=== PATIENT | female | born 1985 | race Caucasian/White ===

== ENCOUNTER 2016-12-26 12:25 | Emergency (ER) | payer MEDICAID, OTHER ==
[~2016-12-26] VITALS: Ht 154.9 cm; Wt 75.0 kg
[~2016-12-26 12:25] MED LIST: FLUT1SPR9 NASAL; KETO2%T TOP; NORE1TAB60 PO; PRIL40CA PO
[2016-12-26 12:44] VITALS: BP 126/83; PULSE 106; RESP 16; TEMP 98.3; O2SAT 100
[2016-12-26 13:41] LABS: GLUCOSE,URINE NEG (NEG); KETONE, URINE NEG (NEG); PH, URINE 5.5 (5.0-8.5)
[2016-12-26 13:42] LABS: BLOOD, URINE MOD (NEG); NITRITE,URINE POS (NEG)
[2016-12-26 13:45] LABS: URINE COLOR STRAW (YELLW/STRAW)
[2016-12-26 13:46] LABS: SQUAMOUS EPITHELIAL CELL URINE 0-5 /hpf (0-5); WBC, URINE 100-200 /hpf (0-5)
[2016-12-26 13:47] LABS: BACTERIA, URINE FEW /hpf; COMMENT (UR) CULTURE INDICATED; CULTURE IF INDICATED CULTURE INDICATED
[2016-12-26] MEDS ORDERED: PHEN0.4T PO (13:50)
[2016-12-26] MEDS ORDERED: CEPH-460 PO (13:50)
--- NOTE | 2016-12-26 13:57 | PD ---
HPI Chief Complaint: Complaint Time Seen by Provider: 13:35 Travel History International Travel<30 days: No Contact w/Intl Traveler<30days: No Traveled to known affect area: No History of Present Illness HPI 31-year-old female presents to the emergency room for evaluation of dysuria, urgency, and frequency for the past 3 days. Patient's symptoms started out simple but worsened yesterday and today. Pain is most severe at the end of her stream and causes associated abdominal cramping. She has history of UTIs and states her symptoms feel same. No vaginal discharge or concern for STDs. She denies fever or chills, nausea, vomiting, abdominal pain, back pain, and hematuria. PFSH Past Medical History Asthma: Yes Anxiety: Yes Depression: Yes Diminished Hearing: No Gastrointestinal Disorders: Yes (ULCER) GERD: Yes Influenza Vaccination: No ?: Not Menopausal: No : 3 Para: 2 Miscarriage: 1 : 0 Past Surgical History Ear Surgery: Yes (EUSTACHIAN TUBES) Tympanostomy Tube: Yes (TIMES 3) Social History Alcohol Use: No Tobacco Use: No Substance Use: No Allergies-Medications (Allergen,Severity, Reaction): Coded Allergies: Egg White (Verified Allergy, Severe, "HIVES", 12/26/16) Reported Meds & Prescriptions Reported Meds & Active Scripts Active Pyridium (Phenazopyridine HCl) 100 Mg Tab 100 Mg PO Q8HR Keflex (Cephalexin) 500 Mg Cap 500 Mg PO Q12HR 10 Days Prilosec 40 mg cap (Omeprazole) 40 Mg Cap 40 Mg PO DAILY Nizoral (Ketoconazole) 2 % Cr 1 Applic TOP BID Flonase Allergy Relief Ch (Fluticasone Propionate (Nasal)) 50 Mcg/Act Spr 2 Puff NASAL DAILY Reported Loestrin 21 08/02 (Ethinyl Estradiol/Norethindrone) Unknown Strength Pack 1 Tab PO DAILY Review of Systems Except as stated in HPI: all other systems reviewed are Neg Physical Exam Narrative GENERAL: Well-nourished, well-developed female in no acute distress. Afebrile. Ambulatory. SKIN: Focused skin assessment warm/dry. HEAD: Normocephalic. EYES: No scleral icterus. No injection or drainage. NECK: Supple, trachea midline. No JVD or lymphadenopathy. CARDIOVASCULAR: Regular rate and rhythm without murmurs, gallops, or rubs. RESPIRATORY: Breath sounds equal bilaterally. No accessory muscle use. GASTROINTESTINAL: Abdomen soft, non-tender, nondistended. BACK: Nontender without obvious deformity. No CVA tenderness. Data Data Last Documented VS Vital Signs Date Time Temp Pulse Resp B/P Pulse Ox O2 Delivery O2 Flow Rate FiO2 12/26/16 12:44 98.3 106 16 126/83 100 Orders Urinalysis - C+S If Indicated (12/26/16 13:26) Urine Culture (12/26/16 13:31) Labs Laboratory Tests Test 12/26/16 13:31 Urine Color STRAW Urine Turbidity HAZY Urine pH 5.5 Urine Specific [place] 1.010 Urine Protein TRACE mg/dL Urine Glucose (UA) NEG mg/dL Urine Ketones NEG mg/dL Urine Occult Blood MOD Urine Nitrite POS Urine Bilirubin NEG Urine Leukocyte Esterase MOD Urine RBC 10-14 /hpf Urine WBC 100-200 /hpf Urine WBC Clumps FEW Urine Squamous Epithelial 0-5 /hpf Cells Urine Bacteria FEW /hpf Microscopic Urinalysis Comment CULTURE INDICATED MDM Medical Decision Making Medical Screen Exam Complete: Yes Emergency Medical Condition: Yes Medical Record Reviewed: Yes Differential Diagnosis UTI, STD, pyelonephritis Narrative Course 31-year-old female presents to the emergency room for evaluation of dysuria, urgency, and frequency for the past 3 days. Patient is afebrile and well- appearing in the emergency room. Resting comfortably in bed. No concern for STD or vaginal discharge. Physical exam is unremarkable. UA shows evidence of urinary tract infection. Patient discharged with prescriptions for Keflex and Pyridium. Told to follow up with her primary care physician or return for worsening symptoms. She understands and agrees to plan. Diagnosis Primary Impression: Urinary tract infection Qualified Code: N30.01 - Acute cystitis with hematuria Referrals: Primary Care Physician Patient Instructions: General Instructions, Urinary Tract Infection in Women ( ED) Additional Instructions: Rest and drink plenty of fluids. Take Keflex as directed, until gone. Take Pyridium before meals, as needed for pain. This medication will make your urine turn orange. Apply ice to the affected area for 20 minutes at a time, as needed for pain and swelling. Follow-up with a primary care physician. Return to the emergency room for worsening symptoms. Med/Other Pt SpecificInfo: Prescription(s) given Scripts Phenazopyridine (Pyridium)100 Mg [id number] Mg PO Q8HR #6 TAB Ref 0 Prov:Vincent Hunter MD 12/26/16 Cephalexin (Keflex)500 Mg [id number] Mg PO Q12HR 10 Days Ref 0 Prov:Vincent Hunter MD 12/26/16 Disposition: 01 DISCHARGE HOME Condition: Stable Swapna Franks Dec 26, 2016 13:57
== END 2016-12-26 14:06 | disposition home or self-care (01) ==
LOC: PHED 12:25 → PHEFT 14:06
DX: N30.01 Acute cystitis with hematuria (principal); B96.20 Unspecified Escherichia coli [E. coli] as the cause of diseases classified elsewhere
CPT/HCPCS: 81001; 87077; 87086; 87186; 99283

== ENCOUNTER → 2017-09-29 | Outpatient (CLI) | payer MEDICAID ==
[~2017-09-29] MED LIST changes: +CEPH-460 PO; +PHEN0.4T PO
== END ==
LOC: HPND 09:28
PROVIDERS: ATTEND Obstetrics & Gynecology
DX: O35.1XX0 Maternal care for (suspected) chromosomal abnormality in fetus, not applicable or unspecified (principal)
CPT/HCPCS: 76811

== ENCOUNTER → 2017-10-29 | Outpatient (CLI) | payer MEDICAID | LOC: HPND 10:52 | PROVIDERS: ATTEND Obstetrics & Gynecology | DX: O35.5XX0 Maternal care for (suspected) damage to fetus by drugs, not applicable or unspecified (principal); O34.12 Maternal care for benign tumor of corpus uteri, second trimester; O60.20X0 Term delivery with preterm labor, unspecified trimester, not applicable or unspecified; O36.5920 Maternal care for other known or suspected poor fetal growth, second trimester, not applicable or unspecified | CPT/HCPCS: 76816; 76818; 76820; 76825; 76827; 93325 ==

== ENCOUNTER → 2017-12-11 | Outpatient (CLI) | payer MEDICAID | LOC: HPND 10:03 | PROVIDERS: ATTEND Obstetrics & Gynecology | DX: O36.5930 Maternal care for other known or suspected poor fetal growth, third trimester, not applicable or unspecified (principal) | CPT/HCPCS: 76816; 76818; 76820; 76821 ==